=== PATIENT | male | born 1945 | race Caucasian/White ===

== ENCOUNTER 2022-07-06 06:41 | Day surgery (SDC) | payer BC ==
[2022-07-06] MEDS ORDERED: Ringers Lactate 1,000 ML IV ONE (07:12)
[2022-07-06] MEDS ORDERED: LIDOCAINE 1% MPF 5 ML VIAL ONE (08:21)
[2022-07-06] MEDS ORDERED: propofoL 200 MG/20 ML VIAL IV ONE (08:21)
[2022-07-06 10:34] VITALS: TEMP 97
[2022-07-06 10:35] VITALS: BP 118/74; O2SAT 99
== END 2022-07-06 09:37 | disposition home or self-care (01) ==
LOC: PRE 06:41 → OR 09:37
PROVIDERS: ATTEND Surgery
PROC: 0DJD8ZZ Inspection of Lower Intestinal Tract, Via Natural or Artificial Opening Endoscopic (ICD-10-PCS; principal; 2022-07-06 08:30)
DX: K59.00 Constipation, unspecified (principal); K57.30 Diverticulosis of large intestine without perforation or abscess without bleeding; K64.8 Other hemorrhoids; K64.4 Residual hemorrhoidal skin tags
CPT/HCPCS: 45378; J2704; J2001; J7120